=== PATIENT | male | born 1995 | race Caucasian/White ===

== ENCOUNTER 2022-09-13 17:15 | Emergency (ER) | payer MEDICARE, SELFPAY ==
--- NOTE | ~2022-09-13 | CT_ITS ---
EXAMINATION: CT abdomen pelvis wo con DATE: 09/13/2022 20:32 INDICATION: testicle pain, abdominal pain TECHNIQUE: Computed tomography (CT) of the abdomen and pelvis was performed without intravenous contr ast. Automated exposure control and iterative reconstruction technique were employed. The dose-length product was 1236.17 mGy-cm. COMPARISON: None. FINDINGS: Motion limited examination, particularly in the upper abdomen. Lower thorax: Cardiac valve replacements. Incompletely visualized pacing leads. Partially visualized distal thoracic aortic endograft. Liver: Normal. Biliary/Gallbladder: Cholelithiasis. No bile duct dilation. Pancreas: No mass or duct dilation. Spleen: Normal. Adrenals:No mass. Kidneys: No mass, stone, or hydronephrosis. Bilateral perinephric stranding. GI tract: No small or large bowel dilation. Normal appendix. Mesentery/Peritoneum: Considerable left lateral conal fascial and fatty septal thickening/stranding i n the left mid and lower abdomen. Retroperitoneum: No mass. Partially duplicated inferior vena cava. Abdominal aortic graft from the di aphragmatic hiatus to the bifurcation. Pelvis: Fatty and fluid/soft tissue density material extends into the left inguinal canal and likely accounts for the sonogram findings. Generalized fatty stranding and inflammatory change in the pelvic fat. Soft Tissues: Extensive left surgical scar, with areas of fat necrosis. Bones: Severe lumbar scoliosis IMPRESSION: 1. Exam limited by lack of contrast and motion. 2. Extensive left lateral conal fascial and fatty septal fluid/stranding, may represent postsurgical scarring, fat packing, and/or fat necrosis. Inflammation/fluid from a aortic graft leak or lipomatous tumor is not excluded. Recommend comparison to outside studies and surgical history. 3. Left inguinal hernia. Reviewed, dictated and finalized at location [facility]. IMPRESSION: 1. Exam limited by lack of contrast and motion. 2. Extensive left lateral conal fascial and fatty septal fluid/stranding, may r epresent postsurgical scarring, fat packing, and/or fat necrosis. Inflammation/ fluid from a aortic graft leak or lipomatous tumor is not excluded. Recommend c omparison to outside studies and surgical history. 3. Left inguinal hernia.
--- NOTE | ~2022-09-13 | US_ITS ---
EXAMINATION: US scrotum doppler DATE: 09/13/2022 18:34 INDICATION: L GROIN/SCROTAL SWELLING . Worse with standing and exercise. No history of trauma. TECHNIQUE: Grayscale and Doppler ultrasound images of the testes were obtained. COMPARISON: None. FINDINGS: The right testis measures 5.1 x 2.3 x 2.6 cm. The left testis measures 4.5 x 2.5 x 3.5 cm. No testicular mass. There is normal vascular flow to both testes. The right epididymis is normal with normal vascular flow. The left epididymis is normal with normal vascular flow. There is no varicocel e or hydrocele. Mixed echogenicity masslike area in the superior left scrotum, superior to the epidid ymis, without significant vascular flow, tenderness to transducer pressure, or change with Valsalva. IMPRESSION: Superior left scrotal mass of mixed echogenicity, of uncertain etiology. May represent an atypical ap pearance of a hernia, mass or other pathology of the spermatic cord, or other lesion. Recommend urolo gy referral and comparison to outside studies if available. Reviewed, dictated and finalized at location [facility]. IMPRESSION: Superior left scrotal mass of mixed echogenicity, of uncertain etiology. May re present an atypical appearance of a hernia, mass or other pathology of the sper matic cord, or other lesion. Recommend urology referral and comparison to outsi de studies if available.
[2022-09-13 17:26] VITALS: BP 98/72; PULSE 89; RESP 14; TEMP 36.2; O2SAT 100
--- NOTE | 2022-09-13 19:32 | ED.MALEGU ---
HPI - Male Genitourinary General Chief complaint: Urogenital-Male Stated complaint: L GROIN SWELLING Time Seen by Provider: 09/13/22 18:50 History of Present Illness HPI Narrative: 27-year-old male with a history of Marfan's requiring multiple aneurysm repairs most recently June 2022, and x2 mechanical valve repairs all done at [facility]. Patient states he has had no postsurgical complications from the surgeries. Presents to the emergency room complaints of left testicular pain and swelling. Patient states that he woke up day morning with complaints of left scrotal swelling. Denies any known injury or trauma. Denies any dysuria. No known history of undescended testicles. Is not concerned with STI. Reports pain radiates up into his suprapubic/left inguinal area. Denies any notable reproducible masses. Related Data Allergies Allergy/AdvReac Type Severity Reaction Status Date / Time iohexol Allergy Swelling Verified 09/13/22 20:09 [From contrast - CT, X-RAY] Review of Systems Review of Systems: CONSTITUTIONAL: Denies fever, chills, or sweats. EYES: Denies visual changes, redness, or discharge. ENT: Denies rhinorrhea, congestion, sore throat, or otalgia. CARDIOVASCULAR: Denies chest pain, palpitations, or edema. RESPIRATORY: Denies cough or dyspnea. GASTROINTESTINAL: Denies abdominal pain, nausea, vomiting, or diarrhea. GENITOURINARY: Reports left testicular pain SKIN: Denies rash or itching. MUSCULOSKELETAL: Denies back pain, joint pain, or myalgia. NEUROLOGIC: Denies headache, numbness, dizziness, or weakness. PSYCHIATRIC: Denies anxiety or depression. Exam Narrative: GENERAL: Well-appearing, well-nourished, no physical limitations, and in no acute distress. HEAD: Normocephalic, atraumatic. EYES: Conjunctivae normal, PERRLA and EOMI. CHEST: Clear to auscultation. No respiratory distress. No wheezes rales or rhonchi. HEART: Regular rate and rhythm. No murmur heard. Normal peripheral pulses. ABDOMEN: Soft, left inguinal tenderness, nondistended, normal active bowel sounds. : Mild left testicular tenderness. Negative Prehn sign. Positive cremasteric reflex bilaterally. No palpable testicular masses. BACK: No CVA tenderness EXTREMITIES: Normal range of motion. No edema. No clubbing or cyanosis SKIN: Warm, dry, no rash. No noted wounds NEURO: No focal deficits. Alert and oriented x3. MAEW. CN's II-XI intact bilaterally, normal gait PSYCH: Cooperative. Normal mood and affect. Course Course Emergency Course: 2214: Spoke to general surgery at [facility]. They will have a computer help desk representative from the general surgery office contact patient in the morning for close follow-up. Vital Signs Vital signs: Vital Signs Temperature 36.2 C L 09/13/22 17:26 Pulse Rate 89 09/13/22 17:26 Respiratory Rate 14 09/13/22 17:26 Blood Pressure 98/72 L 09/13/22 17:26 Pulse Oximetry 100 09/13/22 17:26 Oxygen Delivery Room Air 09/13/22 17:26 Temperature 36.2 C L 09/13/22 17:26 Pulse Rate 89 09/13/22 17:26 Respiratory Rate 14 09/13/22 17:26 Blood Pressure 98/72 L 09/13/22 17:26 Pulse Oximetry 100 09/13/22 17:26 Oxygen Delivery Room Air 09/13/22 17:26 MDM - Male Genitourinary Lab Data Result diagrams: 09/13/22 20:05 09/13/22 20:05 Labs: Lab Results 09/13/22 09/13/22 09/13/22 Range/Units 20:05 20:05 20:08 WBC 5.8 (4.5-10.0) K/mm3 RBC 3.76 L (4.6-6.20) M/mm3 Hgb 12.8 L (14.0-18.0) g/dL Hct 38.2 L (42.0-52.0) % MCV 101.6 H (80-100) fl MCH 34.0 (26-34) pg MCHC 33.5 (32-36) g/dl RDW 14.2 (11.5-14.5) % Plt Count 177 (150-375) k/mm3 MPV 10.9 H (7.4-10.4) fl Immature Gran % (Auto) 0.3 (0-0.5) % Neut % (Auto) 76.8 H (45.5-73.1) % Lymph % (Auto) 10.4 L (18.3-44.2) % [place] % (Auto) 11.8 H (2.6-8.5) % Eos % (Auto) 0.5 (0-4.4) % Baso % (Auto) 0.2 (0.2-1.2) % Lymph # (Auto) 0.60 L
[2022-09-13 20:31] LABS: Appearance Urine Clear (Clear); Bilirubin Urine 1+ (Negative); Blood Urine Trace-intact (Negative); Color Urine Yellow (Yellow); Glucose Urine UA 3+ mg/dL (Negative); Ketones Urine Trace mg/dL (Negative); Leukocyte Esterase Ur Negative LEU/UL (Negative); Nitrate Urine Negative (Negative); Protein Urine Negative (Negative); Specific Grav Ur 1.015 (1.001-1.035)
[2022-09-13 20:33] LABS: Basophils Percent Auto 0.2 % (0.2-1.2); Eosinophils Percent Auto 0.5 % (0-4.4); Hematocrit 38.2 % (42.0-52.0); Hemoglobin 12.8 g/dL (14.0-18.0); Immature Granulocyte Absolute 0.02 K/mm3 (0.00-0.031); Immature Granulocyte Percent A 0.3 % (0-0.5); Lymphocytes Percent Auto 10.4 % (18.3-44.2); Mean Corpuscular HGB Conc 33.5 g/dl (32-36); Mean Corpuscular Volume 101.6 fl (80-100); Mean Platelet Volume 10.9 fl (7.4-10.4); Monocytes Absolute Auto 0.7 K/mm3 (0.1-0.6); Monocytes Percent Auto 11.8 % (2.6-8.5); Neutrophils Absolute Auto 4.4 K/mm3 (1.3-6.7); Neutrophils Percent Auto 76.8 % (45.5-73.1); Platelet Count Result 177 k/mm3 (150-375); Red Blood Count 3.76 M/mm3 (4.6-6.20); Red Cell Distribution Width 14.2 % (11.5-14.5); White Blood Count 5.8 K/mm3 (4.5-10.0)
[2022-09-13 20:35] LABS: RBC Urine 0-2 /hpf (0-2); WBC Urine 0-3 /hpf
[2022-09-13 20:48] LABS: Alanine Aminotransferase 21 U/L (6-50); Albumin Level 4.6 g/dL (3.5-5.1); Alkaline Phosphatase 86 U/L (38-126); Anion Gap 13 mmol/L (8-16); Aspartate Amino Transferase 35 U/L (17-59); Bilirubin,Total 3.8 mg/dL (0.2-1.3); Blood Urea Nitrogen 14 mg/dL (9-20); Calcium 9.1 mg/dL (8.4-10.2); Carbon Dioxide 28 mmol/L (22-30); Chloride 97 mmol/L (98-107); Estimated CRCL calculation 161 ml/min; Estimated Glomerular Filt Rate > 60; Glucose 94 mg/dL (65-110); Potassium 3.8 mmol/L (3.4-5.0); Sodium 138 mmol/L (137-145)
[2022-09-13 20:52] LABS: Add Urine Microscopic? YES
[2022-09-13 22:42] VITALS: BP 91/46; PULSE 95; RESP 16; O2SAT 99
== END 2022-09-13 22:42 | disposition home or self-care (01) ==
PROVIDERS: Emergency Provider Nurse Practitioner Family
DX: K40.90 Unilateral inguinal hernia, without obstruction or gangrene, not specified as recurrent (principal); Q87.40 Marfan syndrome, unspecified; Z95.2 Presence of prosthetic heart valve
CPT/HCPCS: 36415; 74176; 76870; 80053; 81001; 85025; 93976; 99284

== ENCOUNTER 2023-04-24 17:54 | Emergency (ER) | payer MEDICARE, SELFPAY ==
--- NOTE | ~2023-04-24 | XR_ITS ---
EXAM: XR hand RT min 3V DATE: 04/24/2023 19:50 HISTORY: cut hand x 2 days ago, abscess, possible fb . COMPARISON: None available. FINDINGS: Normal mineralization. No fracture or dislocation. No lytic or blastic lesion. Joint space s are maintained. No erosion or periosteal change. No radiopaque foreign body. 10 x 16 mm rounded sof t tissue density along the palm likely representing a superficial abscess. IMPRESSION: No acute osseous finding in the right hand. No radiopaque foreign body. Reviewed, dictated and finalized at location [facility]. IMPRESSION: No acute osseous finding in the right hand. No radiopaque foreign b mykel.
[2023-04-24 19:19] VITALS: BP 117/66; PULSE 78; RESP 17; TEMP 36.6; O2SAT 95
--- NOTE | 2023-04-24 19:33 | ED.SKABFB ---
HPI - Skin/Abscess/Foreign Bdy General Chief complaint: Skin/Abscess/Foreign Body Stated complaint: wound Time Seen by Provider: 04/24/23 19:25 History of Present Illness HPI narrative: 27-year-old male with a history of Marfan syndrome reports for evaluation of a raised lesion to the right palmar aspect of his hand x1 week. Patient states 1 week ago, he accidentally cut himself with a switch blade which caused bleeding. Since then, he has developed a lump with overlying black tissue 2 to 3 days ago with surrounding redness. He denies fever, body aches or chills. States the lesion has not drained since it blood 1 week ago. Reports his tetanus is updated. Related Data Allergies Allergy/AdvReac Type Severity Reaction Status Date / Time iohexol Allergy Swelling Verified 09/13/22 20:09 [From contrast - CT, X-RAY] Review of Systems Review of Systems: CONSTITUTIONAL: Denies fever, chills EYES: Denies visual changes, redness, or discharge. ENT: Denies rhinorrhea, congestion, sore throat, or otalgia. CARDIOVASCULAR: Denies chest pain, palpitations, or edema. RESPIRATORY: Denies cough or dyspnea. GASTROINTESTINAL: Denies abdominal pain, nausea, vomiting, or diarrhea. GENITOURINARY: Denies dysuria or hematuria. SKIN: See HPI MUSCULOSKELETAL: Denies back pain, joint pain, or myalgia. NEUROLOGIC: Denies headache, numbness, dizziness, or weakness. PSYCHIATRIC: Denies anxiety or depression. Exam Narrative: GENERAL: Well-appearing, in no acute distress. HEAD: Normocephalic EYES: PERRLA NECK: Supple. CHEST: No respiratory distress. Clear to auscultation, no adventitious breath sounds. HEART: Regular rate and rhythm. No murmur heard. Normal peripheral pulses. Mechanical valves present. EXTREMITIES: Normal range of motion. No edema. SKIN: 1 cm raised area with fluctuance to the ulnar aspect of the right palm with overlying black tissue and surrounding erythema with a streak extending approximately ~3cm. Full range of motion of fingers. Radial pulse 2+. Cap refill less than 2. Sensation intact. NEURO: No focal deficits. Alert and oriented x3. PSYCH: Normal mood and affect. Course Vital Signs Vital signs: Vital Signs Temperature 97.8 F 06/12/23 19:19 Pulse Rate 78 04/24/23 19:19 Respiratory Rate 17 04/24/23 19:19 Blood Pressure 117/66 04/24/23 19:19 Pulse Oximetry 95 04/24/23 19:19 Oxygen Delivery Room Air 04/24/23 19:19 Temperature 97.8 F 04/24/23 19:19 Pulse Rate 78 04/24/23 19:19 Respiratory Rate 17 04/24/23 19:19 Blood Pressure 117/66 04/24/23 19:19 Pulse Oximetry 95 04/24/23 19:19 Oxygen Delivery Room Air 04/24/23 19:19 Procedures Abscess I/D upper extremity: Side (if applicable): right Local Anesthetic: lidocaine 1% and with epi Amount of anesthesia used (mL): 3 Technique: incised with #11 blade Amount of fluid expressed (mL): 3 Packing used?: none I&D Results: Blood MDM - Skin/Abscess/Foreign Bdy MDM Narrative Medical decision making narrative: 27-year-old male with a history of Marfan syndrome reports for evaluation of a raised lesion to the right palmar aspect of his hand x1 week. Vital stable. Exam reveals a 1 cm area of fluctuance to the ulnar side of the palm with overlying black tissue and erythematous streak extending approximately. He is neurovascularly intact. X-rays obtained to evaluate for foreign body which shows no foreign body or acute osseous abnormalities. CBC without leukocytosis. Chemistries largely unremarkable. I&D of the lesion performed with bloody drainage, no purulent drainage. Wound culture obtained and pending. Hand wrapped nonstick and Coban. Likely that the black tissue is secondary to oxidized blood from hematoma as opposed to necrosis. Patient received his first dose of Bactrim in the ED, Bactrim sent to pharmacy for possible lymphangitis. Advised patient to follow-up with me
[2023-04-24 19:47] LABS: Basophils Percent Auto 0.4 % (0.2-1.2); Eosinophils Absolute Auto 0.1 K/mm3 (0-0.3); Eosinophils Percent Auto 1.5 % (0-4.4); Hematocrit 41.4 % (42.0-52.0); Hemoglobin 13.8 g/dL (14.0-18.0); Immature Granulocyte Absolute 0.01 K/mm3 (0.00-0.031); Immature Granulocyte Percent A 0.2 % (0-0.5); Immature Platelet Fraction Pct 5.2 % (0.9-11.2); Lymphocytes Absolute Auto 0.61 K/mm3 (0.9-3.2); Lymphocytes Percent Auto 11.4 % (18.3-44.2); Mean Corpuscular HGB Conc 33.3 g/dl (32-36); Mean Corpuscular Hemoglobin 34.1 pg (26-34); Mean Corpuscular Volume 102.2 fl (80-100); Mean Platelet Volume 9.8 fl (7.4-10.4); Monocytes Absolute Auto 0.6 K/mm3 (0.1-0.6); Monocytes Percent Auto 11.7 % (2.6-8.5); Neutrophils Percent Auto 74.8 % (45.5-73.1); Platelet Count Result 142 k/mm3 (150-375); Red Blood Count 4.05 M/mm3 (4.6-6.20); Red Cell Distribution Width 14.3 % (11.5-14.5); White Blood Count 5.4 K/mm3 (4.5-10.0)
[2023-04-24 19:54] LABS: Alanine Aminotransferase 30 U/L (6-50); Albumin Level 4.7 g/dL (3.5-5.1); Alkaline Phosphatase 106 U/L (38-126); Anion Gap 4 mmol/L (8-16); Aspartate Amino Transferase 50 U/L (17-59); Bilirubin,Total 2.6 mg/dL (0.2-1.3); Blood Urea Nitrogen 13 mg/dL (9-20); Calcium 8.9 mg/dL (8.4-10.2); Carbon Dioxide 32 mmol/L (22-30); Chloride 100 mmol/L (98-107); Estimated CRCL calculation 175 ml/min; Estimated Glomerular Filt Rate > 60; Glucose 87 mg/dL (65-110); Potassium 4.3 mmol/L (3.4-5.0); Sodium 136 mmol/L (137-145)
[2023-04-24] MEDS: SULFAMETHOXAZOLE/TRIMETHOPRIM 800/160 MG DS TABLET 1 TAB PO (21:11)
== END 2023-04-24 21:10 | disposition home or self-care (01) ==
PROVIDERS: Emergency Provider Physician Assistant
DX: S60.221A Contusion of right hand, initial encounter (principal); Q87.40 Marfan syndrome, unspecified; W26.0XXA Contact with knife, initial encounter
CPT/HCPCS: 10140; 36415; 73130; 80053; 85025; 85055; 87070; 87205; 99283; A9270